=== PATIENT | male | born 1965 | race Caucasian/White ===

== ENCOUNTER 2019-03-29 09:11 | Outpatient (REF) | payer OTHER, SELFPAY ==
[2019-03-29 18:54] LABS: BUN 28 mg/dL (7-18); CREATININE 1.12 mg/dL (0.70-1.30); Calcium 9.3 mg/dL (8.5-10.1); Calculated LDL 125; Chloride 99 mmol/L (98-107); Cholesterol 217 mg/dL (50-200); Glucose 108 mg/dL (70-100); HDL Cholesterol 45 mg/dL (40-60); Potassium 4.1 mmol/L (3.5-5.1); Sodium 138 mmol/L (136-145); Triglyceride 239 mg/dL (30-150)
[2019-03-29 18:55] LABS: Hemoglobin A1C 5.7 % (4.5-6.2)
== END 2019-03-29 09:31 ==
LOC: NCHCN 09:11
PROVIDERS: PCP Physician Assistant Medical; Visit Provider Nurse Practitioner Family
DX: Z00.00 Encounter for general adult medical examination without abnormal findings (principal)
CPT/HCPCS: 80048; 80061; 83721; 83036

== ENCOUNTER 2020-08-24 20:57 | Outpatient (REF) | payer OTHER, SELFPAY ==
[2020-08-24 19:33] LABS: Anion Gap 3.8 mmol/L (3-11); BUN 24 mg/dL (7-18); CO2 31.2 mmol/L (21.0-32.0); CREATININE 1.08 mg/dL (0.70-1.30); Calcium 9.1 mg/dL (8.5-10.1); Calculated LDL 158 mg/dL (<100); Chloride 99 mmol/L (98-107); Cholesterol 230 mg/dL (<200); Glucose 113 mg/dL (74-106); HDL Cholesterol 45 mg/dL (40-60); Potassium 4.1 mmol/L (3.5-5.1); Sodium 134 mmol/L (136-145); Triglyceride 139 mg/dL (<150)
[2020-08-24 19:34] LABS: Hemoglobin A1C 5.5 % (<5.7)
== END 2020-08-24 21:17 ==
LOC: NCHCN 20:57
PROVIDERS: PCP Physician Assistant Medical; Visit Provider Nurse Practitioner Family
DX: I10 Essential (primary) hypertension (principal); R73.9 Hyperglycemia, unspecified; E78.5 Hyperlipidemia, unspecified
CPT/HCPCS: 80048; 80061; 83036

== ENCOUNTER 2022-02-12 17:55 | Outpatient (REF) | payer OTHER, SELFPAY ==
[2022-02-12 21:00] LABS: ALT 50 U/L (16-63); AST 31 U/L (15-37); Albumin 4.6 g/dL (3.4-5.0); Alkaline Phosphatase 88 U/L (46-116); Anion Gap 9.3 mmol/L (3-11); BUN 26 mg/dL (7-18); CO2 26.7 mmol/L (21.0-32.0); CREATININE 0.9 mg/dL (0.70-1.30); Calcium 8.9 mg/dL (8.5-10.1); Calculated LDL 109 mg/dL (<100); Chloride 102 mmol/L (98-107); Cholesterol 177 mg/dL (<200); Glucose 108 mg/dL (74-106); HDL Cholesterol 53 mg/dL (40-60); Potassium 4.1 mmol/L (3.5-5.1); Sodium 138 mmol/L (136-145); Total Protein 7.7 g/dL (6.4-8.2); Triglyceride 78 mg/dL (<150)
== END 2022-02-12 17:56 | disposition home or self-care (01) ==
LOC: NCHCN 17:55
PROVIDERS: PCP Physician Assistant Medical; Visit Provider Nurse Practitioner Family
DX: E78.5 Hyperlipidemia, unspecified (principal); I10 Essential (primary) hypertension
CPT/HCPCS: 80053; 80061

== ENCOUNTER 2023-07-22 09:24 | Outpatient (REF) | payer OTHER, SELFPAY ==
--- OUTSIDE RECORDS SUMMARY | 2023-07-22 09:30 | XMS_ITS | Continuity of Care Document ---
Author Name Unknown Organization [facility] Address [address] [place] [address] Care Team Providers Care Application Software Developer Name Role Phone Stevo Alejandra Primary Care Physician Encounter [id number] Date(s): 09/23/22 - 09/23/[address] [id number] Discharge Disposition: Home or Self Care Attending Physician: Migdalia Ruiz UNARMED SECURITY OFFICER Admitting Physician: Migdalia Ruiz NP Referring Physician: Migdalia Ruiz UNARMED SECURITY OFFICER Immunizations Given and Recorded Vaccine Date Status Refusal Reason SARS-CoV-2 (COVID-19) mRNA-1273 vaccine 02/22/21 R ecorded SARS-CoV-2 (COVID-19) mRNA-1273 vaccine 01/25/21 R ecorded Social History Social History Type Response Sex Male Patient Care team information Personnel Name: Stevo Alejandra MD Address: Address: [address] [address]
[2023-07-22 20:43] LABS: ALT 65 U/L (16-63); AST 39 U/L (15-37); Albumin 4.3 g/dL (3.4-5.0); Alkaline Phosphatase 99 U/L (46-116); Anion Gap 9.4 mmol/L (3-11); BUN 27 mg/dL (7-18); Bilirubin, Total 1.1 mg/dL (0.2-1.0); CO2 27.6 mmol/L (21.0-32.0); Calcium 9.6 mg/dL (8.5-10.1); Calculated LDL 107 mg/dL (<100); Chloride 97 mmol/L (98-107); Cholesterol 179 mg/dL (<200); Estimated GFR 87.78 (mL/min/1.73m2); Glucose 110 mg/dL (74-106); HDL Cholesterol 46 mg/dL (40-60); Potassium 4.3 mmol/L (3.5-5.1); Sodium 134 mmol/L (136-145); Total Protein 8.3 g/dL (6.4-8.2); Triglyceride 130 mg/dL (<150)
== END 2023-07-22 09:25 | disposition home or self-care (01) ==
LOC: NCHCN 09:24
PROVIDERS: PCP Nurse Practitioner Family; Visit Provider Nurse Practitioner Family
DX: I10 Essential (primary) hypertension (principal); R73.03 Prediabetes; E78.5 Hyperlipidemia, unspecified
CPT/HCPCS: 80053; 80061

== ENCOUNTER 2024-08-24 08:42 | Outpatient (REF) | payer OTHER, SELFPAY ==
[2024-08-24 20:01] LABS: Hemoglobin A1C 5.7 % (<5.7)
[2024-08-24 20:06] LABS: ALT 43 U/L (16-63); AST 31 U/L (15-37); Albumin 4.5 g/dL (3.4-5.0); Alkaline Phosphatase 71 U/L (46-116); Anion Gap 7.9 mmol/L (3-11); BUN 30 mg/dL (7-18); CO2 29.1 mmol/L (21.0-32.0); CREATININE 1.1 mg/dL (0.70-1.30); Calcium 9.5 mg/dL (8.5-10.1); Calculated LDL 105 mg/dL (<100); Chloride 103 mmol/L (98-107); Cholesterol 174 mg/dL (<200); Estimated GFR 77.81 (mL/min/1.73m2); Glucose 115 mg/dL (74-106); HDL Cholesterol 56 mg/dL (40-60); Potassium 4.8 mmol/L (3.5-5.1); Sodium 140 mmol/L (136-145); Triglyceride 66 mg/dL (<150)
== END 2024-08-24 08:43 | disposition home or self-care (01) ==
LOC: NCHCN 08:42
PROVIDERS: PCP Nurse Practitioner Family; Visit Provider Nurse Practitioner Family
DX: E78.5 Hyperlipidemia, unspecified (principal); I10 Essential (primary) hypertension; R73.03 Prediabetes
CPT/HCPCS: 80053; 80061; 83036

== ENCOUNTER 2025-08-23 20:36 | Outpatient (REF) | payer OTHER, SELFPAY ==
[2025-08-23 21:06] LABS: ALT 46 U/L (16-63); AST 26 U/L (15-37); Albumin 4.5 g/dL (3.4-5.0); Alkaline Phosphatase 67 U/L (46-116); Anion Gap 8.4 mmol/L (3-11); BUN 37 mg/dL (7-18); Bilirubin, Total 1.6 mg/dL (0.2-1.0); CO2 31.6 mmol/L (21.0-32.0); Calcium 9.6 mg/dL (8.5-10.1); Chloride 98 mmol/L (98-107); Cholesterol 191 mg/dL (<200); Glucose 110 mg/dL (74-106); HDL Cholesterol 53 mg/dL (>or=40); Potassium 4.4 mmol/L (3.5-5.1); Sodium 138 mmol/L (136-145); Total Protein 8.2 g/dL (6.4-8.2)
== END 2025-08-23 20:37 | disposition home or self-care (01) ==
LOC: NCHCN 20:36
PROVIDERS: PCP Nurse Practitioner Family; Visit Provider Nurse Practitioner Family
DX: I10 Essential (primary) hypertension (principal); E78.5 Hyperlipidemia, unspecified
CPT/HCPCS: 80053; 80061